=== PATIENT | female | born 1950 | race Caucasian/White ===

== ENCOUNTER 2016-11-04 08:53 | Outpatient (CLI) | payer OTHER ==
[2016-11-04 18:05] LABS: BASOPHILS # (AUTO) 0.1 10^3/uL (0.0-0.1); BASOPHILS % (AUTO) 0.8 %; EOSINOPHILS # (AUTO) 0.2 10^3/uL (0.0-0.7); EOSINOPHILS % (AUTO) 2.1 %; HGB - HEMOGLOBIN 14.1 g/dL (12.0-16.0); LYMPHOCYTES # (AUTO) 2.2 10^3/uL (1.5-3.5); LYMPHOCYTES % (AUTO) 31.9 %; MEAN CORPUSCULAR HEMOGLOBIN 30.3 pg (27.0-31.0); MEAN CORPUSCULAR HGB CONC 32.1 g/dL (32.0-36.0); MEAN CORPUSCULAR VOLUME 94.5 fL (81.0-99.0); MEAN PLATELET VOLUME 9.6 fL (7.9-10.8); MONOCYTES # (AUTO) 0.6 10^3/uL (0.0-1.0); MONOCYTES % (AUTO) 8.2 %; RED BLOOD COUNT 4.66 10^6/uL (4.20-5.40); RED CELL DISTRIBUTION WIDTH 14.1 % (12.0-15.0)
[2016-11-04 18:23] LABS: ALBUMIN/GLOBULIN RATIO 1.6 (1.0-2.2); BILIRUBIN,TOTAL 0.7 mg/dL (0.2-1.0); BUN - BLOOD UREA NITROGEN 18 mg/dL (6-20); CALCIUM 9.5 mg/dL (8.5-10.3); CARBON DIOXIDE - CO2 26 mmol/L (21-32); CHLORIDE 107 mmol/L (101-111); CHOL/HDL RATIO 3.2 (<4.4); CHOLESTEROL 175 mg/dL; CREATININE 1.1 mg/dL (0.4-1.0); GFR - MDRD 50 (>89); GLUCOSE 90 mg/dL (70-100); HDL CHOLESTEROL 54 mg/dL; LDL/HDL RATIO 1.8 (<4.4); POTASSIUM 4.2 mmol/L (3.5-5.0); SODIUM 140 mmol/L (135-145); TOTAL PROTEIN 7.5 g/dL (6.7-8.2); TRIGLYCERIDES 129 mg/dL; VLDL CHOLESTEROL 26 mg/dL
== END 2016-11-04 08:54 | disposition home or self-care (01) ==
LOC: LAB.F 08:53
PROVIDERS: ATTEND Nurse Practitioner Primary Care
DX: E55.9 Vitamin D deficiency, unspecified (principal); I10 Essential (primary) hypertension; E78.5 Hyperlipidemia, unspecified
CPT/HCPCS: 36415; 80053; 80061; 82306; 85025

== ENCOUNTER 2017-03-01 08:20 | Outpatient (CLI) | payer OTHER ==
[2017-03-01 15:45] LABS: CREATININE 1.1 mg/dL (0.4-1.0)
== END 2017-03-01 08:21 | disposition home or self-care (01) ==
LOC: LAB.F 08:20
PROVIDERS: ATTEND Nurse Practitioner Primary Care
DX: N28.9 Disorder of kidney and ureter, unspecified (principal)
CPT/HCPCS: 36415; 82043; 82565; 84520

== ENCOUNTER 2017-11-14 07:39 | Outpatient (CLI) | payer MEDICARE ==
[2017-11-14 10:50] LABS: BASOPHILS % (AUTO) 0.6 %; EOSINOPHILS # (AUTO) 0.1 10^3/uL (0.0-0.7); EOSINOPHILS % (AUTO) 2.2 %; HGB - HEMOGLOBIN 13.3 g/dL (12.0-16.0); LYMPHOCYTES # (AUTO) 1.9 10^3/uL (1.5-3.5); LYMPHOCYTES % (AUTO) 29.8 %; MEAN CORPUSCULAR HEMOGLOBIN 31.3 pg (27.0-31.0); MEAN CORPUSCULAR HGB CONC 34.2 g/dL (32.0-36.0); MEAN CORPUSCULAR VOLUME 91.5 fL (81.0-99.0); MEAN PLATELET VOLUME 9.3 fL (7.9-10.8); MONOCYTES # (AUTO) 0.6 10^3/uL (0.0-1.0); MONOCYTES % (AUTO) 8.7 %; NEUTROPHILS # (AUTO) 3.8 10^3/uL (1.5-6.6); NEUTROPHILS % (AUTO) 58.7 %; PLT - PLATELET COUNT 217 10^3/uL (130-450); RED BLOOD COUNT 4.26 10^6/uL (4.20-5.40); RED CELL DISTRIBUTION WIDTH 13.6 % (12.0-15.0); WHITE BLOOD COUNT 6.5 x10^3/uL (4.8-10.8)
[2017-11-14 11:12] LABS: ALBUMIN 4.2 g/dL (3.2-5.5); ALBUMIN/GLOBULIN RATIO 1.4 (1.0-2.2); ALKALINE PHOSPHATASE 57 IU/L (42-121); ALT ALANINE AMINOTRANSFERASE 14 IU/L (10-60); AST ASPARTATE AMINOTRANSFERASE 17 IU/L (10-42); BILIRUBIN,TOTAL 0.7 mg/dL (0.2-1.0); BUN - BLOOD UREA NITROGEN 14 mg/dL (6-20); CALCIUM 9.1 mg/dL (8.5-10.3); CARBON DIOXIDE - CO2 26 mmol/L (21-32); CHLORIDE 107 mmol/L (101-111); CHOL/HDL RATIO 3.5 (<4.4); CHOLESTEROL 177 mg/dL; CREATININE 1.2 mg/dL (0.4-1.0); GFR - MDRD 45 (>89); GLUCOSE 94 mg/dL (70-100); HDL CHOLESTEROL 51 mg/dL; LDL CHOLESTEROL,CALCULATED 101 mg/dL; SODIUM 138 mmol/L (135-145); TOTAL PROTEIN 7.1 g/dL (6.7-8.2); VLDL CHOLESTEROL 25 mg/dL
== END 2017-11-14 07:40 | disposition home or self-care (01) ==
LOC: LAB.F 07:39
PROVIDERS: ATTEND Nurse Practitioner Primary Care
DX: E55.9 Vitamin D deficiency, unspecified (principal); Z79.899 Other long term (current) drug therapy; I10 Essential (primary) hypertension; N28.9 Disorder of kidney and ureter, unspecified; E78.5 Hyperlipidemia, unspecified
CPT/HCPCS: 36415; 80053; 80061; 82306; 83721; 85025

== ENCOUNTER 2017-12-23 09:51 | Outpatient (CLI) | payer MEDICARE ==
--- NOTE | 2017-12-23 16:32 | DEXA Report ---
Reason: SCREENING FOR OSTEOPOROSIS/SCREENING MAMMO Procedure Date: 12/23/2017 Accession Number: [id number] / [id number] Procedure: DEX - Dexa Spine and/or Hip CPT Code: FULL RESULT: EXAM: Dexa Spine and/or Hip DATE: 12/23/2017 10:33 AM CLINICAL HISTORY: SCREENING FOR OSTEOPOROSIS/SCREENING MAMMO TECHNIQUE: Dual energy x-ray absorptiometry (DXA) was performed on a AmSafe System. Regions measured are the AP Spine, femoral neck, and if needed forearm. COMPARISON: 12/18/2015. In accordance with the International Society for Clinical Densitometry (ISCD) guidelines, data from previous exams may be reanalyzed using current recommendations and techniques. This is done to allow a more accurate basis for comparison with the current study. FINDINGS: The data for the lumbar spine is as follows: BMD (g/cm/cm) T-SCORE Z-SCORE REGION L1 1.047 -0.7 0.2 L2 1.246 0.4 1.3 L3 1.226 0.2 1.1 L4 1.375 1.5 2.3 TOTAL 1.237 0.5 1.4 NOTE: All evaluable vertebrae are used for classification The data for the hip is as follows: BMD (g/cm/cm) T-SCORE Z-SCORE REGION Neck 0.964 -0.5 0.5 TOTAL 0.976 -0.2 0.5 NOTE: The femoral neck or total proximal femur, whichever is lowest, is used for classification. DXA RESULTS SUMMARY: Spine SCAN DATE AGE BMD CHANGE VS CHANGE VS PREVIOUS PREVIOUS % 12[age]23/2017 [age] 1[age]237 0.077* 6.6* 12/18/2015 [age] 1[age]160 * Denotes significant change at the 95% confidence level. Denotes dissimilar scan types or analysis methods. DXA RESULTS SUMMARY: Hip SCAN DATE AGE BMD CHANGE VS CHANGE VS PREVIOUS PREVIOUS % 13/23/2017 [age] 0[age]976 0.021 2.2 12/18/2015 65.8 0[age]955 * Denotes significant change at the 95% confidence level. Denotes dissimilar scan types or analysis methods. IMPRESSION: THE WHO CLASSIFICATION BASED ON THE INTERNATIONAL REFERENCE STANDARD IS NORMAL. THE FRACTURE RISK IS NOT INCREASED. RECOMMENDATION: Patients with diagnosis of osteoporosis or osteopenia should have regular bone mineral density assessment. For those eligible for Medicare, routine testing is allowed once every 2 years. Testing frequency can be increased for patients who have rapidly progressing disease or for those who are receiving medical therapy to restore bone mass. COMMENT: World Health Organization (WHO) definitions for osteoporosis and osteopenia: NORMAL BMD: T-score at -1.0 or higher, fracture risk is low OSTEOPENIA BMD: T-score between -1.0 and -2.5, fracture risk is increased. OSTEOPOROSIS BMD: T-score at -2.5 or lower, fracture risk is high. National Osteoporosis Foundation recommends: 1. Obtain adequate dietary calcium (at least 1200 mg per day) and vitamin D (400-800 international units per day). 2. Participate, as appropriate, in regular weightbearing and muscle-strengthening exercise. 3. Avoid tobacco use and reduce alcohol and caffeine intake. 4. For more detailed information see the website at www.NOF.org.
== END 2017-12-23 09:52 | disposition home or self-care (01) ==
LOC: DI 09:51
PROVIDERS: ATTEND Nurse Practitioner Primary Care
DX: Z13.820 Encounter for screening for osteoporosis (principal); Z78.0 Asymptomatic menopausal state
CPT/HCPCS: 77080

== ENCOUNTER 2017-12-23 09:53 | Outpatient (CLI) | payer MEDICARE ==
--- NOTE | 2017-12-26 10:26 | Mammography Report ---
Reason: SCREENING MAMMO Procedure Date: 12/23/2017 Accession Number: [id number] / [id number] Procedure: CHANDANA - Screening Mammo Dig Bilat CPT Code: FULL RESULT: EXAM: Screening Mammo Dig Bilat DATE: 12/23/2017 10:42 AM CLINICAL HISTORY: Screening mammography TECHNIQUE: Bilateral CC and MLO views were obtained. COMPARISON: 12/18/2015 FINDINGS: The breast tissue is heterogeneously dense. There is no significant interval change. No suspicious masses, clustered microcalcifications, or regions of architectural distortion are identified. Numerous scattered benign-appearing calcifications are unchanged. IMPRESSION: Benign findings RECOMMENDATION: Routine annual screening unless otherwise clinically indicated. BIRADS CATEGORY 2: Benign findings STANDARD QUALIFYING STATEMENTS: 1. This examination was reviewed with the aid of Computer-Aided Detection (CAD). 2. A negative or benign imaging report should not delay biopsy if clinically suspicious findings are present. Consider surgical consultation if warrented. More than 5% of cancers are not identified by imaging. 3. Dense breasts may obscure an underlying neoplasm.
== END 2017-12-23 09:54 | disposition home or self-care (01) ==
LOC: DI 09:53
PROVIDERS: ATTEND Nurse Practitioner Primary Care
DX: Z12.31 Encounter for screening mammogram for malignant neoplasm of breast (principal)
CPT/HCPCS: 77067

== ENCOUNTER 2020-07-21 08:07 | Outpatient (CLI) | payer MEDICARE ==
--- NOTE | 2020-07-22 12:18 | Mammography Report ---
BILATERAL DIGITAL SCREENING MAMMOGRAM 3D/2D: 07/21/2020 CLINICAL: Routine screening. Comparison is made to exams dated: 12/23/2017 mammogram and 12/18/2015 mammogram - [facility]. There are scattered fibroglandular elements in both breasts. There are calcifications in both breasts. No significant masses, calcifications, or other findings are seen in either breast. There has been no significant interval change. IMPRESSION: BENIGN There is no mammographic evidence of malignancy. A 1 year screening mammogram is recommended. This exam was interpreted at Station ID: [id number]. NOTE: For mammograms, a report in lay terms will be sent to the patient. Approximately 15% of breast malignancies will not be visualized mammographically. In the management of a palpable breast mass, a negative mammogram must not discourage biopsy of a clinically suspicious lesion. Electronically Signed By: Ezequiel Crocker M.D. aty/:07/21/2020 08:51:15 ACR BI-RADS Category 2: Benign Finding(s) 3342F PARENCHYMAL PATTERN: (A) - The breast(s) demonstrate(s) scattered fibroglandular densities. BI-RADS CATEGORY: (2) - 2 RECOMMENDATION: (ANNUAL) - Recommend routine annual screening mammography. [id number] 1 year screening LATERALITY: (B)
== END 2020-07-21 08:08 | disposition home or self-care (01) ==
LOC: DI 08:07
DX: Z12.31 Encounter for screening mammogram for malignant neoplasm of breast (principal)

== ENCOUNTER 2020-09-16 10:01 | Outpatient (CLI) | payer MEDICARE | END 2020-09-16 10:02 | disposition home or self-care (01) | LOC: DI 10:01 | PROVIDERS: ATTEND Nurse Practitioner Family | DX: R01.1 Cardiac murmur, unspecified (principal); I35.0 Nonrheumatic aortic (valve) stenosis | CPT/HCPCS: 93306 ==

== ENCOUNTER 2020-10-02 12:54 | Outpatient (CLI) | payer MEDICARE ==
--- NOTE | 2020-10-02 14:01 | CARDIAC PROCEDURE NOTE ---
Stress Test Report Service Date: 10/02/20 Service Time: 14:00 Ordering Provider: Charo Muro NP Indication for Test: Increased exertional dyspnea in setting of mild aortic stenosis and hypertension, with recent adjustment of antiHTNsive meds. Significant Medical History: Has HTN treated for several years, with recent addition of chlorthalidone to prior lisinopril; she reports better BP control, but with some increase in exertional dyspnea, though is still able to walk up and down hills in her neighborhood for 2.2 miles several times weekly. Recent TTE was normal except for finding of mild stenosis (BELKYS 1.76 cm2) of tri-leaflet aortic valve. Cardiac Risk Factors: Positive family history with premature sudden in father at age 44 and "heart disease" in brother in his 60's; history of treated hypertension and hyperlipidemia; no history of diabetes or tobacco smoking. Type of Stress Test: Exercise Treadmill Test (ETT) Procedure: -Exercise Treadmill Test- After signing informed consent, the patient performed treadmill exercise using a Bentley protocol. The patient exercised for 4 minutes 55 seconds and achieved a peak heart rate of 148 (98 percent predicted maximum heart rate for age), and an estimated workload of 7 METS. The test was terminated due to fatigue/shortness of breath at a diagnostic heart rate. Resting heart rate: 86 Peak heart rate: 148 Normal response to exercise. Resting BP: 138/66 Peak BP: 211/64 during exercise Hypertensive BP response to exercise. Rhythm during exercise: Sinus rhythm throughout. Symptoms: Exertional dyspnea. EKG at rest showed normal sinus rhythm with early precordial R/S transition and slight ST elevation (<1.0 mm) in inferior and anterolateral leads. EKG at peak stress showed ST depression of >1.0 mm meeting diagnostic criteria for ischemia. In Recovery patient's BP initially increased (peak 224/63), prior to normalizing after 7 min. No imaging was ordered with this stress test. IFrank MD, was present throughout and supervised this treadmill stress test in its entirety. Summary: 1) Fair exercise tolerance as evidenced by LUIS ANTONIO of 13%. 2) Normal resting EKG. 3) Adequate level of exercise was achieved on this treadmill stress test. 4) Abnormal hypertensive BP response to exercise. 5) ST depression meeting diagnostic criteria for ischemia were seen at peak exercise. Differential includes secondary to HTNsive response, false positive ST finding due to female gender or true cardiac ischemia. 6) No imaging was ordered with this test; consider repeat study, possibly with interval increase in anti-HTNsive meds, with imaging, e.g. echocardiographic.
== END 2020-10-02 12:55 | disposition home or self-care (01) ==
LOC: DI 12:54
PROVIDERS: ATTEND Nurse Practitioner Family
DX: R01.1 Cardiac murmur, unspecified (principal); I10 Essential (primary) hypertension; E78.5 Hyperlipidemia, unspecified; Z82.49 Family history of ischemic heart disease and other diseases of the circulatory system

== ENCOUNTER 2021-03-19 08:40 | Outpatient (CLI) | payer MEDICARE ==
--- NOTE | 2021-03-19 10:56 | CARDIAC PROCEDURE NOTE ---
Stress Test Report Service Date: 03/19/21 Service Time: 09:00 Ordering Provider: Charo Muro NP Indication for Test: Assess for cardiac ischemia as a contributor to increased exertional dyspnea in the setting of mild aortic stenosis and hypertension, in patient who underwent a stand alone ETT on 10/02/20 on which she had a markedly hypertensive BP response and ST depression that met criteria for ischemia. Significant Medical History: Daily has history of hypertension that has been treated for several years and just prior to her prior stress test she had had chlorthalidone added to her prior dailyy lisinopril. She reported better blood control but noted an increase in exertional dyspnea, that was affecting her while walking up hills in her neighborhood, which she does several times weekly. After the prior stress test her blood pressure continued to decrease, but she became more symptomatic with worsening dyspnea and new onset lightheadedness. She took a trip to [place] for a couple of weeks, during which she ran out of her chlorthalidone, with reduction in her exertional dyspnea and lightheadedness, leading her to believe that these were chlorthalidone side effects, so she did not resume it. She has not yet been started on an alternative agent. Prior to the ETT that was done in September she underwent a diagnostic echocardiogram that was normal except for the finding of mild stenosis (BELKYS 1.76 cm) of her trileaflet aortic valve. She has remained on lisinopril and took it this morning. Cardiac Risk Factors: Positive for presumed ASCVD family history, with premature sudden in her father at age 44 and "heart disease" in her mother in her 60's; she has history of treated hypertension and hyperlipidemia, with no history of diabetes or tobacco smoking. Type of Stress Test: ETT with Myocardial Perfusion Imaging Procedure: -Exercise Treadmill Test- After signing informed consent, the patient underwent resting 99Tc-Myoview SPECT imaging and then performed treadmill exercise using a Bentley protocol. The patient exercised for 5 minutes 4 seconds and achieved a peak heart rate of 141 (94 percent predicted maximum heart rate for age), and an estimated workload of 7.1 METS. The test was terminated due to fatigue/shortness of breath, after she attained her target heart rate. Resting heart rate: 71 Peak heart rate: 141 Normal response to exercise. Resting BP: 166/109 Peak BP: 212/90 Hypertensive at rest with further physiologic BP increase with exercise. Rhythm during exercise: Sinus rhythm throughout. Symptoms: She reports her dyspnea with this test was less than she would have expected had she continued on chlorthalidone. EKG at rest showed normal sinus rhythm, with minor (<1.0 mm) ST elevation in some leads, most suggestive of early repolarization. EKG at peak stress showed ST depression of >1.0 mm in leads II, III, V4 & V5, meeting diagnostic EKG criteria for ischemia. In Recovery heart rate returned to normal (perhaps more slowly than average) and BP trended downward, with last reading 172/80 at 5 minutes. Nuclear imaging performed at rest and with stress and will be reported separately. IFrank MD, was present throughout this treadmill stress study and supervised it in its entirety. Summary: 1) Exercise tolerance slightly below average for age, as evidenced by LUIS ANTONIO of 11%. 2) Normal resting EKG. 3) Adequate level of exercise was achieved on this treadmill stress test. 4) Hypertensive at rest with further physiologic BP increase with exercise. 5) ST depression meeting diagnostic criteria for ischemia were seen at peak stress. 6) Analysis of gated nuclear images reveals normal left ventricular size and hyperdynamic systolic function; SPECT analysis reveals normal perfusion of the left ventricle at rest and following treadmill stress, thus no evidence of prior infarct or inducible ischemia. See separate report for more detail. PRELIMINARY CONCLUSIONS: 1) ETT results very similar to prior study, with similar exercise time, elevated resting BP with further physiologic exertional increase, and abnormal ST depression. 2) Nuclear imaging results most consistent with ST depression representing a false positive EKG response, seen commonly in adult females. 3) Since the patient cannot tolerate chlorthalidone, we discussed that a trial of amlodipine (without or with increase in lisinopril dose) may be an appropriate next step, given that a CCB would be the third class of first-line antihypertensive agents.
--- NOTE | 2021-03-19 15:44 | Nuclear Medicine Report ---
PROCEDURE: Rest and exercise myocardial perfusion SPECT with gated imaging and ejection fraction INDICATIONS: AORTIC VALVE STENOSIS RADIOPHARMACEUTICAL: 10.95 mCi Tc-99m Myoview IV at rest and 32.05 mCi Tc-99m Myoview IV at peak exe rcise. Gso-eyu-sfxgeqtn was performed. TECHNIQUE: Radiopharmaceutical was injected at peak stress test, and also at rest. SPECT images wer e obtained. SPECT myocardial perfusion images were displayed in short axis, horizontal long axis, an d vertical long axis views. Gated images were reviewed using AutoQU[employer] software. COMPARISON: None available. FINDINGS: Raw data: There is good myocardial labeling by radiotracer. No significant motion artifacts. Lung- to-heart ratio is 0.26 (normal is less than 0.46 for tetrafosmin tracer). Left ventricle function: Gated images demonstrate normal left ventricle wall thickening. No segment al wall motion abnormality. No transient ischemic dilation; TID is 0.76 (normal less than 1.30). Th e left ventricle resting end-diastolic volume is 63 mL. Left ventricle stress ejection fraction is 9 3%; normal values are above 45%. Myocardial perfusion: There is normal distribution of activity in the left and right ventricular colin cardium. No fixed or reversible perfusion defects. IMPRESSION: 1. Normal myocardial perfusion study with no fixed or reversible perfusion defects. 2. Normal left ventricular function with no segmental wall motion abnormalities and normal stress LVE F of 93%. PQRS ATTESTATIONS: Measure 322 - Is this imaging test primarily performed on a low-risk surgery patient for preoperative evaluation within 30 days preceding their low-risk non-cardiac surgery? Low-risk surgery is defined as cardiac or myocardial infarction less than 1%, including (but not limited to) endoscopic pr ocedures, superficial procedures, cataract surgery, and excisional breast surgery: Answer: No Measure 323 - Is this imaging test performed primarily for the monitoring of an asymptomatic patient who had percutaneous coronary intervention on the visit date or within 2 years of the visit date? An swer: No Measure 324 - Is this imaging test performed primarily for the initial detection and risk assessment on an asymptomatic, low coronary heart disease patient? Low CHD risk definition = clinicians should consider the maximum number of available patient factors used to estimate risk based on [place] (A TP III criteria), typically age, gender, diabetes, smoking status, and use of blood pressure medicati on, and integrate age appropriate estimates for missing elements, such as LDL or standard blood press ure. Answer: No Reviewed by: Asha Long MD, PhD on 03/19/2021 3:43 PM PST Approved by: Asha Long MD, PhD on 03/19/2021 3:43 PM PST Station ID: [id number]
== END 2021-03-19 08:41 | disposition home or self-care (01) ==
LOC: DI 08:40
PROVIDERS: ATTEND Nurse Practitioner Family
DX: I35.0 Nonrheumatic aortic (valve) stenosis (principal); I10 Essential (primary) hypertension; E78.5 Hyperlipidemia, unspecified; Z82.49 Family history of ischemic heart disease and other diseases of the circulatory system
CPT/HCPCS: 78452; 93016; 93017; 93018; A9500

== ENCOUNTER 2021-12-31 08:02 | Outpatient (CLI) | payer MEDICARE ==
--- NOTE | 2022-01-01 10:18 | Mammography Report ---
BILATERAL DIGITAL SCREENING MAMMOGRAM 3D/2D: 12/31/2021 CLINICAL: Routine screening. Family history of breast cancer. Comparison is made to exams dated: 07/21/2020 mammogram, 12/23/2017 mammogram, and 12/18/2015 mammogr am - [facility]. Both breasts are heterogeneously dense, which may obscure small masses (category c / 51-75% glandular tissue). There are benign calcifications in both breasts. No significant masses, calcifications, or other findings are seen in either breast. There has been no significant interval change. IMPRESSION: BENIGN There is no mammographic evidence of malignancy. A 1 year screening mammogram is recommended. This exam was interpreted at Station ID: [id number]. NOTE: For mammograms, a report in lay terms will be sent to the patient. Approximately 15% of breast malignancies will not be visualized mammographically. In the management of a palpable breast mass, a negative mammogram must not discourage biopsy of a clinically suspicious lesion. Electronically Signed By: Ezequiel Crocker M.D. at/kannanrad:12/31/2021 21:24:51 ACR BI-RADS Category 2: Benign Finding(s) 3342F PARENCHYMAL PATTERN: (D) - The breast(s) demonstrate(s) heterogeneously dense fibroglandular beto galeano. BI-RADS CATEGORY: (2) - 2 RECOMMENDATION: (ANNUAL) - Recommend routine annual screening mammography. [id number] 1 year screening LATERALITY: (B)
== END 2021-12-31 08:03 | disposition home or self-care (01) ==
LOC: DI.S 08:02
PROVIDERS: ATTEND Nurse Practitioner Family
DX: Z12.31 Encounter for screening mammogram for malignant neoplasm of breast (principal); Z80.3 Family history of malignant neoplasm of breast